=== PATIENT | male | born 1960 | race Caucasian/White ===

== ENCOUNTER 2019-10-23 17:01 | Emergency (ER) | payer SELFPAY ==
[~2019-10-23] VITALS: Ht 172.7 cm; Wt 98.4 kg
[2019-10-23 17:04] VITALS: Ht 172.7 cm; Wt 98.4 kg
[2019-10-23 20:15] VITALS: BP 135/83
== END 2019-10-23 20:15 | disposition home or self-care (01) ==
LOC: ED 17:01
DX: S20.212A Contusion of left front wall of thorax, initial encounter (principal); W01.0XXA Fall on same level from slipping, tripping and stumbling without subsequent striking against object, initial encounter; Y93.89 Activity, other specified; Y92.89 Other specified places as the place of occurrence of the external cause; Y99.8 Other external cause status